=== PATIENT | male | born 1960 | race Caucasian/White ===

== ENCOUNTER 2017-09-12 09:08 | Day surgery (SDC) | payer OTHER ==
[~2017-09-12] VITALS: Ht 185.4 cm; Wt 105.7 kg
[2017-09-12] MEDS ORDERED: METF500C ×2 (09:45)
[2017-09-12] MEDS ORDERED: LOSA50 ×2 (09:47→09:48)
[2017-09-12] MEDS ORDERED: Simvastatin20 MG (09:47)
[2017-09-12] MEDS ORDERED: LIRA0.6P (09:49)
[2017-09-12] MEDS ORDERED: Humalog100 UNIT/1 (09:50)
[2017-09-12] MEDS ORDERED: INSULANPEN (09:51)
[2017-09-12] MEDS ORDERED: ASPI81CH (09:51)
[2017-09-12] MEDS ORDERED: CHOL10002 (09:52)
[2017-09-12] MEDS ORDERED: OCUVITE ADULT1 EACH (09:52)
[2017-09-12] MEDS ORDERED: Prilosec Otc20 MG (09:52)
[2017-09-12] MEDS ORDERED: TOUJEO SOL300 UNIT/1 (09:53)
== END 2017-09-12 11:47 | disposition home or self-care (01) ==
LOC: ORSCSDS 09:08
PROVIDERS: Internal Medicine Gastroenterology
PROC: 0DBP8ZX Excision of Rectum, Via Natural or Artificial Opening Endoscopic, Diagnostic (ICD-10-PCS; principal; 2017-09-12 10:30)
PROC: 0DBM8ZX Excision of Descending Colon, Via Natural or Artificial Opening Endoscopic, Diagnostic (ICD-10-PCS; principal; 2017-09-12 10:30)
DX: Z12.11 Encounter for screening for malignant neoplasm of colon (principal); K62.1 Rectal polyp; D12.4 Benign neoplasm of descending colon; K64.8 Other hemorrhoids; K57.30 Diverticulosis of large intestine without perforation or abscess without bleeding; Z86.010 Personal history of colon polyps; G47.30 Sleep apnea, unspecified; E11.9 Type 2 diabetes mellitus without complications; Z79.82 Long term (current) use of aspirin; Z79.4 Long term (current) use of insulin; Z79.899 Other long term (current) drug therapy
CPT/HCPCS: 82947; 88305; J7120

== ENCOUNTER → 2019-05-06 | Outpatient (CLI) | payer OTHER ==
[~2019-05-06] MED LIST: ASPI81CH; CHOL10002; Humalog100 UNIT/1; INSULANPEN; LIRA0.6P; LOSA50; METF500C; OCUVITE ADULT1 EACH; Prilosec Otc20 MG; Simvastatin20 MG; TOUJEO SOL300 UNIT/1
== END | disposition home or self-care (01) ==
LOC: LAB 12:49 → LAB SHORT 12:49
DX: R51 Headache (principal)
CPT/HCPCS: 87070; 87205

== ENCOUNTER → 2019-12-08 | Outpatient (CLI) | payer OTHER ==
[2019-12-08 12:24] LABS: BASOPHILS ABSOLUTE AUTO 0.01 K/mm3 (0.00-0.23); BASOPHILS PERCENT AUTO 0 % (0-2); EOSINOPHILS ABSOLUTE AUTO 0.01 K/mm3 (0.00-0.68); EOSINOPHILS PERCENT AUTO 0 % (0-6); Hematocrit 37.4 % (37.0-53.0); Hemoglobin 11.7 g/dL (13.5-17.5); IMMATURE GRAN ABSOLUTE AUTO 0.01 K/mm3 (0.00-0.10); IMMATURE GRAN PERCENT AUTO 0 % (0-1); LYMPHOCYTES ABSOLUTE AUTO 1.26 K/mm3 (0.84-5.20); LYMPHOCYTES PERCENT AUTO 41 % (21-46); MONOCYTES ABSOLUTE AUTO 0.24 K/mm3 (0.16-1.47); MONOCYTES PERCENT AUTO 8 % (4-13); Mean Corpuscular HGB 25.7 pg (26.0-34.0); Mean Corpuscular HGB Conc 31.3 g/dL (31.5-36.5); Mean Corpuscular Volume 82 fL (80-100); Mean Platelet Volume 10.3 fL (9.1-12.4); NEUTROPHILS ABSOLUTE AUTO 1.54 K/mm3 (1.96-9.15); NEUTROPHILS PERCENT AUTO 50 % (41-73); Platelet Count 107 K/mm3 (150-400); RDW Coefficient Variation 15.1 % (11.7-14.2); RDW Standard Deviation 45.4 fL (35.1-46.3); Red Blood Cell Count 4.56 M/mm3 (4.30-5.90); White Blood Cell Count 3.07 K/mm3 (4.00-11.30)
[2019-12-08 12:34] LABS: Alanine Aminotransfer (ALT/SGP 33 U/L (12-78); Albumin, Blood 3.9 g/dL (3.4-5.0); Albumin/Globulin Ratio 1.1 (0.8-1.8); Alk Phos 44 U/L (50-136); Anion Gap 4 mmol/L (6-16); Aspartate Aminotrans (AST/SGOT 30 U/L (12-37); Bilirubin, Total 0.6 mg/dL (0.1-1.0); Blood Urea Nitrogen 21 mg/dL (8-24); Bun/Creatinine Ratio 29.6 (12.0-20.0); CHOL/HDL RATIO 3.3; CO2, Blood 28 mmol/L (21-32); Calcium, Blood 8.8 mg/dL (8.5-10.1); Chloride, Blood 108 mmol/L (98-108); Cholesterol 103 mg/dL (50-200); Creatinine, Blood 0.71 mg/dL (0.60-1.20); Globulin, Blood 3.6 g/dL (2.2-4.0); Glomerular Filtration Rate >60 (60-); Glucose, Blood 147 mg/dL (70-99); HDL Cholesterol 31 mg/dL (>39); LDL/HDL RATIO 1.3; Low Density Lipoprotein Chol 42 mg/dL (0-110); Potassium, Blood 4.2 mmol/L (3.5-5.5); Sodium, Blood 140 mmol/L (136-145); Total Protein, Blood 7.5 g/dL (6.4-8.2); Triglycerides 151 mg/dL (30-160); Very Low Density Lipoprot Chol 30 mg/dL (6-32)
== END | disposition home or self-care (01) ==
LOC: LAB SHORT 11:45 → LAB 11:45
PROVIDERS: Nurse Practitioner Family
DX: E11.65 Type 2 diabetes mellitus with hyperglycemia (principal)
CPT/HCPCS: 80053; 80061; 83036; 85025

== ENCOUNTER 2021-03-18 07:47 | Day surgery (SDC) | payer OTHER ==
[~2021-03-18] VITALS: Ht 182.9 cm; Wt 104.0 kg
[~2021-03-18 07:47] MED LIST changes: +Eql Vision For1 EACH PO; +LOSARTAN POTAS100 M1 PO; +NEBI10 PO; +NOVOLOG FL100 UNIT/3 SQ; +OZEMPIC1 MG/0.71 SC; +ROSU5 PO; -TOUJEO SOL300 UNIT/1; +TOUJEO SOL300 UNIT/2 SQ; +VITAMIN D5000 UNIT PO
[2021-03-18] MEDS ORDERED: PRILOSEC OTC20 MG (08:08)
--- NOTE | 2021-03-18 09:47 | NUR ---
03/18/21 0947 Carolyn Rice VITALS TAKEN EVERY 2 MINUTES DURING ENTIRE PROCEDURE, MONITOR ONLY PRINTS EVERY 5 MINUTES AND CANNOT BE CHANGED PER BIOMED. PT STABLE THROUGHOUT PROCEDURE.
== END 2021-03-18 10:13 | disposition home or self-care (01) ==
LOC: ORSCSDS 07:47
PROVIDERS: Internal Medicine Gastroenterology
PROC: 0DB68ZX Excision of Stomach, Via Natural or Artificial Opening Endoscopic, Diagnostic (ICD-10-PCS; principal; 2021-03-18 09:00)
PROC: 0DB98ZX Excision of Duodenum, Via Natural or Artificial Opening Endoscopic, Diagnostic (ICD-10-PCS; principal; 2021-03-18 09:00)
PROC: 0DJD8ZZ Inspection of Lower Intestinal Tract, Via Natural or Artificial Opening Endoscopic (ICD-10-PCS; 2021-03-18 09:00)
DX: D50.9 Iron deficiency anemia, unspecified (principal); Z86.010 Personal history of colon polyps; K64.8 Other hemorrhoids; K57.30 Diverticulosis of large intestine without perforation or abscess without bleeding; K29.70 Gastritis, unspecified, without bleeding; E66.9 Obesity, unspecified; Z68.32 Body mass index [BMI] 32.0-32.9, adult; Z79.82 Long term (current) use of aspirin; Z79.899 Other long term (current) drug therapy
CPT/HCPCS: 82947; 88305; 88342; J2704; J7120

== ENCOUNTER 2022-01-15 16:00 | Emergency (ER) | payer OTHER ==
[~2022-01-15] VITALS: Ht 182.9 cm; Wt 108.9 kg
[~2022-01-15 16:00] MED LIST changes: +PRILOSEC OTC20 MG
== END 2022-01-15 19:02 | disposition home or self-care (01) ==
LOC: ER 16:00
DX: F07.81 Postconcussional syndrome (principal); E11.9 Type 2 diabetes mellitus without complications; K21.9 Gastro-esophageal reflux disease without esophagitis; I10 Essential (primary) hypertension; Z79.899 Other long term (current) drug therapy; Z79.4 Long term (current) use of insulin; Z79.82 Long term (current) use of aspirin
CPT/HCPCS: 70450; 99283-25

== ENCOUNTER 2024-03-10 07:16 | Day surgery (SDC) | payer OTHER ==
[~2024-03-10] VITALS: Ht 185.4 cm; Wt 90.0 kg
[2024-03-10] VITALS (8 sets, daily range): BP systolic 108–144; BP diastolic 66–80
[~2024-03-10 07:16] MED LIST changes: +Botulinum Toxin Type A 100 U Vial SC ONE; +Lactated Ringer's 1,000 ML IV SCH; +METF500C PO
[2024-03-10] MEDS ORDERED: JARDIANCE25 MG PO (08:08)
[2024-03-10] MEDS ORDERED: Midazolam HCl 1MG / ML 2ML Vial IV ONE (08:10)
[2024-03-10] MEDS ORDERED: Bupivacaine 0.5% HCl 5 MG/ML 30MLVIAL ONE (08:17)
[2024-03-10] MEDS ORDERED: propofoL 20 ML IV ONE (08:28)
[2024-03-10] MEDS ORDERED: FentaNYL Citrate 50 MCG/ML 2 ML Injection ONE (08:28)
--- NOTE | 2024-03-10 08:30 | NUR ---
History, Chart, Medications and Allergies reviewed before start of procedure. Patient up to Ambulate independently. Gait steady. Pre-Op teaching done. Pt verbalizes understanding. Patient confirms NPO status and agrees with scheduled surgery. Lungs clear T/O to Auscultation. Patient states took miralax last night & completed enema this morning as directed by Dr. Solorzano. Patient States Post-Procedure ride home has been arranged.
[2024-03-10] MEDS ORDERED: Phenylephrine HCl 100 MCG/ML-NS 10MLSYR (1MG/10ML) ONE (08:34)
[2024-03-10] MEDS ORDERED: Dexamethasone Sod Phos 10 MG/ML 1ML VIAL ONE (08:34)
[2024-03-10] MEDS ORDERED: Ondansetron HCl 2 MG / ML 2ML Vial ONE (08:34)
[2024-03-10] MEDS ORDERED: Ketorolac Tromethamine 30mg Vial ONE (08:51)
[2024-03-10] MEDS ORDERED: HYDROcodone 5-APAP 325 TAB PO PRN (09:20)
--- NOTE | 2024-03-10 10:04 | NUR ---
DISCHARGE NOTE PT A&OX4, BREATHING RA, VSS, NO COMPLAINTS. PT HAS NO PAIN OR NAUSEA. NO DRESSINGS IN PLACE, SCANT AMOUNT OF SPOTTING TO BED. Patient up to Ambulate independently. Gait steady. Discharge instructions reviewed with patient. Patient verbalizes understanding. Copy given to patient to take home. Discharged via wheelchair to private car for ride home.
== END 2024-03-10 10:00 | disposition home or self-care (01) ==
LOC: ORSCMMR 07:16 → ORD 08:45 → ORSCMMR 10:00
PROVIDERS: Surgery
PROC: 3E0H3GC Introduction of Other Therapeutic Substance into Lower GI, Percutaneous Approach (ICD-10-PCS; principal; 2024-03-10 08:45)
PROC: 0WJP7ZZ Inspection of Gastrointestinal Tract, Via Natural or Artificial Opening Approach (ICD-10-PCS; principal; 2024-03-10 08:45)
DX: K60.1 Chronic anal fissure (principal); I25.10 Atherosclerotic heart disease of native coronary artery without angina pectoris; E78.5 Hyperlipidemia, unspecified; G47.33 Obstructive sleep apnea (adult) (pediatric); I10 Essential (primary) hypertension; E11.42 Type 2 diabetes mellitus with diabetic polyneuropathy; Z79.4 Long term (current) use of insulin; Z79.82 Long term (current) use of aspirin; Z79.84 Long term (current) use of oral hypoglycemic drugs; Z79.85 Long-term (current) use of injectable non-insulin antidiabetic drugs; Z79.899 Other long term (current) drug therapy
CPT/HCPCS: 82947; J0585; J1100; J1885; J2250; J2371; J2405; J2704; J3010; J7120

== ENCOUNTER 2024-05-01 06:13 | Day surgery (SDC) | payer OTHER ==
[~2024-05-01] VITALS: Ht 182.9 cm; Wt 89.5 kg
[~2024-05-01 06:13] MED LIST changes: -Botulinum Toxin Type A 100 U Vial SC ONE; +JARDIANCE25 MG PO; -Lactated Ringer's 1,000 ML IV SCH
[2024-05-01] MEDS ORDERED: EPINEPhrine HCl 1 MG/ML 1ML Amp ONE (06:52)
[2024-05-01] MEDS ORDERED: Methylene Blue 1% 100 MG/10 ML VIAL ONE (06:52)
[2024-05-01] MEDS ORDERED: Lactated Ringer's 1,000 ML IV ONE (06:55)
[2024-05-01] MEDS ORDERED: propofoL 20 ML IV ONE (06:59)
[2024-05-01] MEDS ORDERED: FentaNYL Citrate 50 MCG/ML 2 ML Injection ONE (07:00)
[2024-05-01] MEDS ORDERED: Dexamethasone Sod Phos 10 MG/ML 1ML VIAL ONE (07:01)
[2024-05-01] MEDS ORDERED: Ondansetron HCl 2 MG / ML 2ML Vial ONE (07:01)
[2024-05-01] MEDS ORDERED: Midazolam HCl 1MG / ML 2ML Vial ONE (07:12)
[2024-05-01] MEDS ORDERED: Botulinum Toxin Type A 100 U Vial IM ONE ×2 (07:25→07:47)
[2024-05-01] MEDS ORDERED: EPINEPhrine HCl 1 MG/ML 1ML Amp XX ONE (07:47)
[2024-05-01] MEDS ORDERED: Bupivacaine 0.5% HCl 5 MG/ML 30MLVIAL INJ ONE (07:47)
--- NOTE | 2024-05-01 07:54 | NUR ---
05/01/24 0754 Kati Holt 0.15ML OF EPI 1MG/ML ADDED TO 30MLS BUPIVICAINE 0.5% TO CREATE A LOCAL SOLUTION OF BUPIVICAINE 0.5% WITH EPI 1:200,000.
[2024-05-01 08:35] VITALS: BP 131/70
== END 2024-05-01 08:50 | disposition home or self-care (01) ==
LOC: ORSCSDS 06:13 → ORD 07:30 → ORSCSDS 08:50
PROVIDERS: Surgery
PROC: 0DBQXZZ Excision of Anus, External Approach (ICD-10-PCS; principal; 2024-05-01 07:30)
PROC: 3E0H3GC Introduction of Other Therapeutic Substance into Lower GI, Percutaneous Approach (ICD-10-PCS; principal; 2024-05-01 07:30)
DX: K60.1 Chronic anal fissure (principal); I10 Essential (primary) hypertension; I25.10 Atherosclerotic heart disease of native coronary artery without angina pectoris; E78.5 Hyperlipidemia, unspecified; G47.33 Obstructive sleep apnea (adult) (pediatric); E11.9 Type 2 diabetes mellitus without complications; Z79.85 Long-term (current) use of injectable non-insulin antidiabetic drugs; Z79.4 Long term (current) use of insulin; Z79.84 Long term (current) use of oral hypoglycemic drugs; Z79.899 Other long term (current) drug therapy
CPT/HCPCS: 82947; J0171; J0585; J1100; J2250; J2405; J2704; J3010; J7120; Q9968